=== PATIENT | female | born 1935 | race Caucasian/White ===

== ENCOUNTER 2018-01-30 14:51 | Outpatient (CLI) | payer MEDICARE ==
--- NOTE | 2018-01-30 15:58 | CT ---
LUMBAR SPINE NONCONTRAST: History: Low back pain. Fracture. Comparison: Radiographs 12-20-17. FINDINGS: Compression of the T12 vertebral body is apparent with minimal retropulsion of the superior and infer ior endplates. Loss of height is approximately 50%. Scoliosis throughout the vertebral body. Deminera lization centrally. Gas disc phenomenon at the T11-12 level. T12-L1: Mild retropulsion. Circumferential degenerative changes with moderate stenosis of the central canal. L1-2: Mild disc bulge. Thecal sac is patent. Mild bilateral foraminal stenosis. L2-3: Posterior disc bulge. Circumferential degenerative changes with severe stenosis of the central canal and moderate stenosis of each neural foramen. L3-4: L3 compression with loss of height by approximately 30%. 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 Posterior disc bulge and circumferential degenerative changes with severe stenosis of th e central canal and each neural foramen, left greater than right. L4-5: Posterior operative fixation and decompression. Loss of disc spade with grade I spondylolisthes is. Central canal remains patent. Moderate to severe bilateral foraminal stenoses. L5-S1: Mild disc bulge. Thecal sac is patent. Moderate to severe bilateral foraminal stenoses. Well corticated lucency associated with the left iliac bone has the appearance of prior bone harvest. There is prominent calcification throughout the arterial structures. Multiple hyperdense stones with in the gallbladder lumen. IMPRESSION: 1. Post-operative changes lumbar spine. Prominent multilevel degenerative changes. 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 2. Severe compression T12, age indeterminate. Partial compression L3 with appearance of an old injury . 3. Atherosclerosis. 4. Cholelithiasis. POS: [facility]
== END 2018-01-30 14:52 | disposition home or self-care (01) ==
LOC: MADCT 14:51
PROVIDERS: ATTEND Neurological Surgery
DX: S22.089A Unspecified fracture of T11-T12 vertebra, initial encounter for closed fracture (principal); M47.896 Other spondylosis, lumbar region; M48.061 Spinal stenosis, lumbar region without neurogenic claudication; M99.83 Other biomechanical lesions of lumbar region; I70.90 Unspecified atherosclerosis; K80.20 Calculus of gallbladder without cholecystitis without obstruction
CPT/HCPCS: 72131

== ENCOUNTER 2020-09-01 18:20 | Emergency (ER) | payer MEDICARE ==
[2020-09-01 19:00] LABS: #Basophils 0.1 thou/uL (0.0-0.2); #Eosinphils 0.1 thou/uL (0.0-0.7); #Lymphocytes 2.3 thou/uL (1.20-3.40); #Monocytes 0.7 thou/uL (0.11-0.59); #Neutrophils 3.6 thou/uL (1.40-6.50); %Basophils 0.9 % (0.0-1.0); %Eosinophils 1.5 % (0.0-10.0); %Lymphocytes 34.4 % (21.0-51.0); %Neutrophils 53.2 % (42.0-75.0); Hemoglobin 10.4 g/dL (12.0-16.0); Mean Corpuscular Hemoglobin 29.1 pg (27.0-31.0); Mean Corpuscular Volume 91.1 fL (78.0-98.0); Mean Platelet Volume 6.3 fL (7.4-10.4); Platelet Count 265 thou/uL (130-400); RBC Distribution Width 15.9 % (11.5-14.5); Red Blood Cell (RBC) Count 3.58 mill/uL (4.20-5.40); White Blood Cell (WBC) Count 6.8 thou/uL (4.8-10.8)
[2020-09-01 19:09] LABS: Bilirubin Negative (Negative); Blood, Urine Large (Negative); Glucose, Urine (Dipstick) Negative (Negative); Ketone, Urine Negative (Negative); Leukocyte Large (Negative); Nitrite Positive (Negative); Protein, Urine (Dipstick) Negative (Neg-Trace); Urobilinogen 0.2 mg/dL (Less than 2); pH, Urine 7.5 (5.0-9.0)
--- NOTE | 2020-09-01 19:14 | RAD ---
Portable frontal chest radiograph: 09/01/2020 COMPARISON: None HISTORY: Chest pain FINDINGS: There is atherosclerotic calcification of the aortic arch. No pneumothorax or pleural fluid is seen. There is no focal consolidation or alveolar edema. Prominent anterior wedge compression fracture noted at T12 as seen on prior CT performed in 2018. Impression: No focal consolidation or alveolar edema.
--- NOTE | 2020-09-01 19:19 | CT ---
Head CT without contrast: 09/01/2020 HISTORY: Altered mental status TECHNIQUE: Axial CT imaging at 3.75 mm intervals from vertex through skull base without contrast. Cor onal and sagittal reformatted imaging obtained. FINDINGS: There is periventricular, deep, and subcortical white matter hypodensity, evidence of small vessel disease. The imaged paranasal sinuses and mastoid air cells demonstrate no acute findings. There is no displaced calvarial fracture, intracranial hemorrhage, midline shift, or mass effect. IMPRESSION: Evidence of small vessel disease. No intracranial hemorrhage.
[2020-09-01 19:20] LABS: Bacteria/HPF 4+ HPF (None Seen); Clarity Slightly Cloudy (Clear); WBC/HPF Greater Than 50 HPF (0-3)
[2020-09-01 19:21] LABS: ALT (SGPT) 15 U/L (8-55); AST (SGOT) 20 U/L (5-34); Albumin 3.7 g/dL (3.4-4.8); Alkaline Phosphatase 72 U/L (40-110); Anion Gap 17 mmol/L (10-20); BUN (Urea Nitrogen) 17 mg/dL (9.8-20.1); Bilirubin, Total 0.7 mg/dL (0.2-1.2); CK (CPK) 31 U/L (29-168); Calc. Creatinine Clearance 0 mL/min (70-130); Calcium 9.5 mg/dL (7.8-10.44); Carbon Dioxide 18 mmol/L (23-31); Chloride 105 mmol/L (98-107); Glucose 133 mg/dL (83-110); Lipase 17 U/L (8-78); Potassium 3.6 mmol/L (3.5-5.1); Protein, Total 7.7 g/dL (6.0-8.3); Sodium 136 mmol/L (136-145)
[2020-09-01] MEDS ORDERED: cefTRIAXone\\ROCEPHIN 2 GM VIAL ONE (19:45)
[2020-09-01] MEDS ORDERED: Sodium Chloride 0.9% 1,000 ML ONE (19:45)
[2020-09-01] MEDS ORDERED: Sodium Chloride 0.9% 100 ML ONE (19:46)
== END 2020-09-01 21:35 | disposition home or self-care (01) ==
LOC: MADERS 18:20
DX: T83.511A Infection and inflammatory reaction due to indwelling urethral catheter, initial encounter (principal)
CPT/HCPCS: 51702; 70450; 71045; 80053; 81003; 81015; 82150; 82550; 83605; 83690; 84484; 85025; 86140; 87077; 87086; 87186; 96365; J0696; J3490; J7050